=== PATIENT | female | born 1990 | race Caucasian/White ===

== ENCOUNTER 2019-09-08 19:05 | Emergency (ER) | payer OTHER, SELFPAY ==
[2019-09-08 19:25] VITALS: BP 140/77; PULSE 107; RESP 18; TEMP 37.5; O2SAT 100
--- NOTE | 2019-09-08 20:05 | ED.SKABFB ---
HPI - Skin/Abscess/Foreign Bdy General Chief complaint: Skin/Abscess/Foreign Body Stated complaint: Boil on inner thigh Time Seen by Provider: 09/08/19 20:10 Source: patient Mode of arrival: ambulatory Limitations: no limitations History of Present Illness HPI narrative: healthy 28 yo female presents for pain, redness, swelling noted to left inner thigh that has been present for 1 week and worsening. She denies any drainage, fever, myalgias, chills, sweats. NO medications used. No prior hx of abscesses. Related Data Home Medications Medication Instructions Recorded Confirmed [id number] K tablet PO 09/08/19 [Adults Multivitamin] Allergies Allergy/AdvReac Type Severity Reaction Status Date / Time No Known Allergies Allergy Unverified 12/21/17 15:40 Review of Systems Review of Systems: Narrative: CONSTITUTIONAL: Denies fever, chills, weight loss, or sweats. CARDIOVASCULAR: Denies chest pain, palpitations, or edema. RESPIRATORY: Denies cough or dyspnea. SKIN: Denies rash or itching. Reports pain, redness, swelling, firmness to left inner thigh MUSCULOSKELETAL: Denies back pain, joint pain, myalgia NEUROLOGIC: Denies headache, numbness, or weakness. PSYCHIATRIC: Denies anxiety or depression. PMFSH Comments At the time of my signature, I agree with nursing past medical, surgical, social and family history. There is no relevant family history pertinent to the presenting complaint. Exam Narrative: Exam Narrative: GENERAL: Mild distress due to pain, well appearing, well nourished, alert and calm HEAD: Normocephalic, atraumatic. THROAT: Oropharynx without signs erythema, exudates or lesions. Tonsils not enlarged. NECK: Supple. No lymphadenopathy. RESPIRATORY: Airway patent. Chest clear to auscultation bilaterally. Breath sounds equal bilaterally. No retractions. CARDIOVASCULAR: Regular rate and rhythm. No murmurs, rubs, gallops, or clicks. Capillary refill <2 seconds. MUSCULOSKELETAL: Range of motion grossly normal in all four extremities. Strength grossly normal in all four extremities. No edema. No swelling SKIN: Color normal. [id number] area of erythema and induration and mild central fluctuation. Very tender to touch. No drainage noted. Located to left inner thigh NEURO: Alert. Motor intact in all extremities. Muscle tone normal. Course Vital Signs Vital signs: Vital Signs Temperature 99.5 F 09/08/19 19:25 Pulse Rate 107 H 09/08/19 19:25 Respiratory Rate 18 09/08/19 19:25 Blood Pressure 140/77 09/08/19 19:25 Pulse Oximetry 100 09/08/19 19:25 Temperature 99.5 F 09/08/19 19:25 Pulse Rate 107 H 09/08/19 19:25 Respiratory Rate 18 09/08/19 19:25 Blood Pressure 140/77 09/08/19 19:25 Pulse Oximetry 100 09/08/19 19:25 Reviewed The patient has been informed that they may have pre-hypertension or Hypertension based on a BP reading in the department. I recommend that the patient call the primary care provider listed on their discharge instructions or a physician of their choice this week to arrange follow up for further evaluation of possible pre-hypertension or Hypertension MDM - Skin/Abscess/Foreign Bdy MDM Narrative Medical decision making narrative: Patient is stable but due to size of abscess and inability for appropriate pain control during I&D, recommended patient go to the ER for I&D. Patient declined and stated she will follow up with per PCP tomorrow. Will place patient on abx and instructed on how to care for abscess at home. Patient is aware of diagnosis, understands and agrees to treatment plan. Patient agrees to follow-up as directed and is aware of reasons to seek care at the emergency department. Critical Care Time Critical Care Time Critical Care Time: No Discharge Plan Discharge Clinical Impression: Abscess of skin Patient Disposition: Home, Self-Care Condition: Stable Instructions: Abscess (ED) Additional Instructions: Recommen
== END 2019-09-08 20:10 | disposition home or self-care (01) ==
PROVIDERS: Emergency Provider Nurse Practitioner
DX: L02.416 Cutaneous abscess of left lower limb (principal)
CPT/HCPCS: 99213; G0463

== ENCOUNTER 2022-11-25 13:02 | Emergency (ER) | payer BC, SELFPAY ==
[2022-11-25 13:16] VITALS: BP 128/84; PULSE 110; RESP 14; TEMP 37.6; O2SAT 100
--- NOTE | 2022-11-25 13:36 | ED.URI ---
HPI - URI/Sore Throat General Chief Complaint: Upper Respiratory Infection Stated Complaint: Sore Throat Source: patient and RN notes reviewed History of Present Illness HPI Narrative: 31-year-old female presents to urgent care with complaints of a sore throat since last Friday or Friday. Patient states in the last 24 hours, her pain has exacerbated. Patient denies any fevers, chills, vomiting, abdominal pain, chest pain, shortness of. Patient has taken ibuprofen and Tylenol with minimal relief. Some parts of this dictation were generated by voice recognition software and may contain typographical and/or grammatical inaccuracies. Related Data Home Medications Medication Instructions Recorded Confirmed multivit with minerals-iron 18 1 tablet PO DAILY 09/08/19 mg-folic ac 400 mcg-vit K 25 mcg tablet (Adults Multivitamin) Allergies Allergy/AdvReac Type Severity Reaction Status Date / Time No Known Allergies Allergy Verified 11/25/22 13:18 Review of Systems Review of Systems: Pertinent positives and pertinent negatives per HPI. PMFSH Comments At the time of my signature, I reviewed and agree with the nursing past medical, surgical, social, and family history. There is no relevant family history pertinent to the patient complaint. Exam Narrative: GENERAL: This is a well-nourished, well-developed patient, in no apparent distress. HEAD: normocephalic, atraumatic. EYES: Sclera clear/white. Vision is grossly intact. EARS: External ears normal, auditory canals clear and without drainage. Hearing grossly intact. NOSE: External nose normal with no obvious nasal discharge, nares without redness, no rhinorrhea. THROAT: Mucous membranes moist, posterior pharynx erythemic. Tonsils are 2+ bilaterally. No exudate. NECK: Neck supple, non-tender without lymphadenopathy, masses or thyromegaly. CARDIOVASCULAR: Regular rate and rhythm without murmurs, gallops, or rubs. RESPIRATORY: Clear to auscultation. Breath sounds equal bilaterally. No wheezes, rales, or rhonchi. GASTROINTESTINAL: Abdomen soft, non-tender, nondistended. Bowel sounds are active. No hepato-splenomegaly, or palpable masses. No guarding. SKIN: warm, intact with no suspicious lesions or rash, good texture and turgor. NEURO: awake, alert, and oriented to person, place and time. There were no obvious focal neurologic abnormalities. Course Course Level of Care: Express Care Visit Vital Signs Vital signs: Vital Signs Temperature 99.6 F 11/25/22 13:16 Pulse Rate 110 H 11/25/22 13:16 Respiratory Rate 14 11/25/22 13:16 Blood Pressure 128/84 11/25/22 13:16 Pulse Oximetry 100 11/25/22 13:16 Oxygen Delivery Room Air 11/25/22 13:16 Temperature 99.6 F 11/25/22 13:16 Pulse Rate 110 H 11/25/22 13:16 Respiratory Rate 14 11/25/22 13:16 Blood Pressure 128/84 11/25/22 13:16 Pulse Oximetry 100 11/25/22 13:16 Oxygen Delivery Room Air 11/25/22 13:16 Reviewed MDM - URI/Sore Throat MDM Narrative Medical decision making narrative: After 24 hours on antibiotics throw tooth brush away and start using a new one. Increase your Vitamin C. Do not share drinks. Take Motrin alternating with Tylenol for pain and/or fever alternating every 4 hours. Increase fluids, avoid caffeine. Take a probiotic daily or eat a low sugar yogurt while taking the antibiotic. Follow up with Primary provider if not getting better this week Lab Data Labs: Strep Screen Positive Group A Strep *(Reference Range: Negative)* Critical Care Time Critical Care Time Critical Care Time: No Discharge Plan Discharge Clinical Impression: Pharyngitis Qualifiers: Pharyngitis/tonsillitis etiology: streptococcus Qualified Code(s): J02.0 - Streptococcal pharyngitis Patient Disposition: Home, Self-Care Condition: Stable Instructions: Antibiotic Form, Strep Throat (DC) Additional Instruction
== END 2022-11-25 13:38 | disposition home or self-care (01) ==
PROVIDERS: Emergency Provider Nurse Practitioner Family
DX: J02.0 Streptococcal pharyngitis (principal)
CPT/HCPCS: 87880; 99213; G0463

== ENCOUNTER 2022-12-08 18:48 | Observation (INO) | payer BC, SELFPAY ==
--- NOTE | ~2022-12-08 | CT_ITS ---
EXAMINATION: CT abdomen pelvis w con DATE: 12/08/2022 21:16 INDICATION: Cholecystitis TECHNIQUE: Computed tomography (CT) of the abdomen and pelvis was performed with 100 mL Omnipaque-350 intravenous contrast. Automated exposure control and iterative reconstruction technique were employe d. The dose-length product was 512.06 mGy-cm. COMPARISON: 04/05/2012. FINDINGS: Lower thorax: Unremarkable Liver: Normal. Biliary/Gallbladder: Focal hyperdensity near the gallbladder neck. Gallbladder wall edema. No bile du ct dilation. Pancreas: No mass or duct dilation. Spleen: Normal. Adrenals:No mass. Kidneys: No suspicious mass, stone, or hydronephrosis. GI tract: Mild distal esophageal and gastric wall edema. No small or large bowel dilation. Chronicall y dilated appendix, with no surrounding inflammatory change. Mesentery/Peritoneum: No ascites, mass, or free air. Retroperitoneum: No mass. Pelvis: IUD, situated in the lower uterine segment. The remaining pelvic organs are within normal tejeda its. Soft Tissues: Soft tissues and body wall unremarkable. Bones: No acute osseous finding. IMPRESSION: Cholelithiasis, with gallbladder wall edema/thickening, which may represent acute cholecystitis in th e appropriate clinical context. Reviewed, dictated and finalized at location K. IMPRESSION: Cholelithiasis, with gallbladder wall edema/thickening, which may represent acu te cholecystitis in the appropriate clinical context.
[2022-12-08 18:54] VITALS: BP 181/82; PULSE 105; RESP 18; TEMP 37.1; O2SAT 100
[2022-12-08 20:14] LABS: Appearance Urine Clear (Clear); Bilirubin Urine Negative (Negative); Blood Urine Negative (Negative); Color Urine Yellow (Yellow); Glucose Urine UA Negative (Negative); Ketones Urine Negative (Negative); Leukocyte Esterase Ur Negative LEU/UL (Negative); Nitrate Urine Negative (Negative); Protein Urine Negative (Negative); Specific Grav Ur 1.002 (1.001-1.035); Urobilinogen Urine 0.2 mg/dL (<2.0)
[2022-12-08 20:15] LABS: Add Urine Microscopic? NO
[2022-12-08] MEDS: ONDANSETRON INJ 4 MG/2 ML VIAL 8 MG IV PUSH (20:17)
[2022-12-08] MEDS: SODIUM CHLORIDE 0.9% IV 2,000 ML 999 ML IV CONT (20:17)
[2022-12-08] MEDS: FAMOTIDINE 20 MG/2 ML VIAL IV PUSH (20:17)
[2022-12-08] MEDS: HYDROmorphone HCL INJ (*CRX) 1 MG/ML SYR 0.5 MG IV PUSH ×3 (20:18→22:29)
[2022-12-08 20:33] LABS: Basophils Absolute Auto 0.1 K/mm3 (0.0-0.1); Basophils Percent Auto 0.5 % (0.2-1.2); Eosinophils Absolute Auto 0.2 K/mm3 (0-0.3); Eosinophils Percent Auto 1.5 % (0-4.4); Hematocrit 48.8 % (37.0-47.0); Hemoglobin 15.8 g/dL (12.0-15.0); Immature Granulocyte Absolute 0.04 K/mm3 (0.00-0.031); Immature Granulocyte Percent A 0.4 % (0-0.5); Lymphocytes Absolute Auto 1.99 K/mm3 (0.9-3.2); Lymphocytes Percent Auto 17.7 % (18.3-44.2); Mean Corpuscular HGB Conc 32.4 g/dl (32-36); Mean Corpuscular Volume 92.6 fl (80-100); Mean Platelet Volume 9.2 fl (7.4-10.4); Monocytes Absolute Auto 0.4 K/mm3 (0.1-0.6); Monocytes Percent Auto 3.7 % (2.6-8.5); Neutrophils Absolute Auto 8.5 K/mm3 (1.3-6.7); Neutrophils Percent Auto 76.2 % (45.5-73.1); Platelet Count Result 392 k/mm3 (150-375); Red Blood Count 5.27 M/mm3 (4.2-5.4); Red Cell Distribution Width 13.6 % (11.5-14.5); White Blood Count 11.2 K/mm3 (4.5-10.0)
[2022-12-08 20:43] LABS: Alanine Aminotransferase 29 U/L (6-35); Albumin Level 4.9 g/dL (3.5-5.1); Alkaline Phosphatase 110 U/L (38-126); Anion Gap 8 mmol/L (8-16); Aspartate Amino Transferase 27 U/L (14-36); Bilirubin,Total 0.5 mg/dL (0.2-1.3); Blood Urea Nitrogen 7 mg/dL (7-17); Calcium 9.8 mg/dL (8.4-10.2); Carbon Dioxide 24 mmol/L (22-30); Chloride 105 mmol/L (98-107); Estimated CRCL calculation 131 ml/min; Estimated Glomerular Filt Rate > 60; Glucose 111 mg/dL (65-110); Lipase 54 U/L (23-300); Potassium 4.3 mmol/L (3.4-5.0); Sodium 137 mmol/L (137-145)
--- NOTE | 2022-12-08 20:59 | ED.GENADULT ---
HPI - General Adult General Chief complaint: Abdominal Pain Stated complaint: upper abd pain Time Seen by Provider: 12/08/22 19:38 History of Present Illness HPI narrative: This is a 31-year-old female presenting ED with chief complaint of right upper quadrant pain. Started last night at 11:00 p.m. and lasted till 8:00 a.m.. It then resolved but then recurred again this afternoon. Since then has been constant. It is located in the right upper quadrant, nonradiating 9 out 10 in intensity and comes and goes. She has never had pain like this before, it is worse after eating and there are no alleviating factors. She has had multiple episodes of nausea and vomiting with subjective fevers. No diarrhea no chest pain no shortness of breath. Related Data Home Medications Medication Instructions Recorded Confirmed multivit with minerals-iron 18 1 tablet PO DAILY 09/08/19 mg-folic ac 400 mcg-vit K 25 mcg tablet (Adults Multivitamin) Allergies Allergy/AdvReac Type Severity Reaction Status Date / Time No Known Allergies Allergy Verified 11/25/22 13:18 [facility] Surgical History Surgical History H/O: Exam Narrative: APPEARANCE: No apparent distress. Head: atraumatic. EYES: EOMI, NOSE: Atraumatic NECK: Trachea midline RESPIRATORY: No increased rate of breathing CARDIOVASCULAR: RRR, ABDOMINAL: Patient is exquisitely tender in the right upper quadrant. rest the abdomen is soft nontender with no guarding or rebound. MUSCULOSKELETAl: No obvious deformities NEURO: Alert. Moving 4/4 extremities SKIN:: Warm, dry. Normal color PSYCHIATRIC: Normal affect Point of care right upper quadrant ultrasound performed by myself showed multiple gallstones, a thickened gallbladder wall and pericholecystic fluid. Findings are concerning for cholecystitis. Course Vital Signs Vital signs: Vital Signs Temperature 98.8 F 12/08/22 18:54 Pulse Rate 105 H 12/08/22 18:54 Respiratory Rate 18 12/08/22 18:54 Blood Pressure 181/82 H 12/08/22 18:54 Pulse Oximetry 100 12/08/22 18:54 Oxygen Delivery Room Air 12/08/22 18:54 Temperature 98.8 F 12/08/22 18:54 Pulse Rate 69 12/08/22 21:46 Respiratory Rate 16 12/08/22 21:46 Blood Pressure 149/94 H 12/08/22 21:46 Pulse Oximetry 100 12/08/22 21:46 Oxygen Delivery Room Air 12/08/22 18:54 Procedures Other Procedure Procedure 1: Other Procedure: Point of care right upper quadrant ultrasound performed by . exam finding showed multiple cholelithiasis with gallbladder wall thickening and pericholecystic fluid. Positive sonographic Rivera's. Findings are concerning for acute cholecystitis. Medical Decision Making MDM Narrative Medical decision making narrative: -Presentation: 31-year-old female presenting with right upper quadrant/epigastric pain. -DDX includes but is not limited to: gastritis, gallbladder pathology -Co-morbidities complicating care: none -Social determinants of health: works as an production support analyst. Lives with her . -External Chart Review: None -Hx from independent Sources: Venessa-mother bedside -Discussion of Management/Consultants: Dr. Handy surgery -Independent interpretation of studies: right upper quadrant ultrasound and CT abdomen pelvis showed acute cholecystitis. Patient has mild white count of 11.2. No elevation in liver enzymes. Urinalysis was negative. Dx tests considered but not ordered: None -Procedures: right upper quadrant ultrasound -Interventions: 0.5 mg Dilaudid x3, 15 mg Toradol, 1000 mg tylenol, 4mg Zofran, pip/tazo, 2L NS -Shared decision making / Disposition: patient received multiple rounds of Dilaudid without improvement in her pain. Patient's findings are concerning for acute cholecystitis. Patient will be admitted to the hospital for pain control and evaluation by surgery. -RX Vital Signs Vital
[2022-12-08 21:46] VITALS: BP 149/94; PULSE 69; RESP 16; O2SAT 100
[2022-12-08] MEDS: KETOROLAC 15 MG/ML VIAL (*BKC) IV PUSH (22:37)
[2022-12-08] MEDS: PIPERACILLN/TAZ 3.375GM/NS50ML 3.375 GM/50 ML BAG IVPB (22:54)
[2022-12-08 22:56] VITALS: BP 121/81; PULSE 75; RESP 16; O2SAT 100
--- NOTE | 2022-12-08 23:22 | ADMGEN ---
This patient, Susan Vasquez, was admitted to Medical Room 259-. Patient/family oriented to hospital policies and general routines including ID bracelet, bed and alarms, visiting hours, pain management, procedures, bathroom and other care routines, personal items, smoking policy, room service/diet, and visiting hours. Information on how to activate the Rapid Response Team has been discussed. Patient/Family are encouraged to report perceived risks to care and to ask questions if they do not understand what they are told or what they should do.
[2022-12-08 23:28] VITALS: BP 129/76; PULSE 72; RESP 20; TEMP 36.2; O2SAT 100
[2022-12-08 23:29] VITALS: BMI 29.7
[2022-12-08] MEDS: LACTATED RINGERS 1,000 ML 125 ML IV CONT (23:39)
[2022-12-09] MEDS: PIPERACILLN/TAZ 3.375GM/NS50ML 3.375 GM/50 ML BAG IVPB ×4 (05:35→23:45)
[2022-12-09] MEDS: KETOROLAC 30 MG/ML VIAL (*BKC) 15 MG IV PUSH ×2 (05:38→15:43)
[2022-12-09] MEDS: LACTATED RINGERS 1,000 ML 125 ML IV CONT ×3 (05:43→23:52)
[2022-12-09 06:00] VITALS: BP 122/75; PULSE 60; RESP 20; TEMP 36.7; O2SAT 98
[2022-12-09] MEDS: PANTOPRAZOLE SODIUM IV 40 MG VIAL IV PUSH (08:21)
--- NOTE | 2022-12-09 09:50 | PM.IMHP ---
H&P: HPI History of Present Illness Date/Time: 12/09/22 09:50 Chief Complaint: Epigastric abdominal pain Narrative: This is a 31-year-old who presented to the ER with epigastric abdominal pain last night. She reports a sudden onset of pain around 11:00 p.m. 2 nights ago. She had eaten baked chicken and rice for dinner prior to the onset of symptoms. She tried taking Tylenol, Aleve, and Tums without any relief. She was unable to sleep all night due to the pain. Her pain began to improve around 8:00 a.m. yesterday morning. She reports still feeling some soreness in the epigastric area. She had a poor appetite yesterday and only ate a few chips. Her abdominal pain became aggravated in the afternoon and was more severe than it was the night before. Therefore, she presented to the ER for evaluation. Labs showed a white blood cell count of 11,[address] scan of the abdomen and pelvis showed cholelithiasis with gallbladder wall edema/thickening with a focal hyperdensity near the gallbladder neck, which may represent acute cholecystitis. She continued to have abdominal pain in the ER and was admitted to our service for acute cholecystitis. She was started on IV Zosyn and made NPO. She is now seen on the medical floor. She is still having some pain, which is relieved by the IV pain medication. She reports associated nausea with 3 episodes of vomiting yesterday, but no nausea this morning. Only previous abdominal surgery was a delivery about 5 years ago. She does endorse previous episodes of similar epigastric abdominal pain that are more mild and resolved spontaneously over the past few years. Review of Systems Review of Systems: All systems reviewed & are unremarkable except as noted in HPI and below Cardiovascular: Cardiovascular: Reports no additional cardiovascular complaints, Denies chest pain and Denies pedal edema Respiratory: Respiratory: Reports no additional respiratory complaints, Denies cough and Denies dyspnea Gastrointestinal: Gastrointestinal: Reports as per HPI, Reports no additional gastrointestinal complaints, Reports abdominal pain, Denies melena, Denies bloating, Denies hematochezia, Denies coffee ground emesis, Denies constipation, Reports nausea, Reports vomiting and Denies hematemesis PMFSH Past Medical History Medical History No pertinent past medical history Surgical History Surgical History H/O: Family History Family History Father Malignant neoplasm of prostate Mother Diabetes mellitus Social History Social History Smoking packs per day: 1 Smoking cigarettes per day: 20.0 Smoking status: Current every day smoker Tobacco type: cigarettes Alcohol intake: never Substance use: never Lack of Transportation: No Lack of Food: Never True Current Housing: I Have Housing Concerned About Future Housing: No Difficulty Paying Gas/Electric Bills: No Difficulty Paying for Meds: No Currently Unemployed: No Education: Associate Degree Difficulty w/ Childcare or Family Care: No Spiritual care concerns: No Meds Home Medications and Allergies Home Medications Medication Instructions Recorded Confirmed Type No Home Medications 12/08/22 12/08/22 History Allergies Allergy/AdvReac Type Severity Reaction Status Date / Time No Known Allergies Allergy Verified 11/25/22 13:18 Vital Signs Vital Signs - 24 hr 12/08/22 18:54 12/08/22 21:46 12/08/22 22:56 Temperature 98.8 F Pulse Rate 105 H 69 75 Respiratory Rate 18 16 16 Blood Pressure 181/82 H 149/94 H 121/81 Pulse Oximetry 100 100 100 Oxygen Delivery Room Air 12/08/22 23:28 12/09/22 06:00 Temperature 97.1 F L 98.1 F Pulse Rate 72 60 Respiratory
[2022-12-09] MEDS: CHLORHEXIDINE GLUCONATE 4% SOL 120 ML BTL 1 APPLIC TOPICAL (11:20)
[2022-12-09 14:19] VITALS: BP 126/74; PULSE 67; RESP 17; TEMP 36.9; O2SAT 100
--- NOTE | 2022-12-09 14:22 | WPDHPUPDATE1 ---
History and Physical Update Update Date/Time: 12/09/22 14:22 History and Physical has been reviewed, including an updated exam of the patient. There are NO changes in the patient's condition. Risks, benefits, and alternatives have been discussed and questions answered. Patient agrees to proceed with procedure.
[2022-12-09] MEDS: ACETAMINOPHEN 500 MG TABLET 1000 MG PO (15:43)
[2022-12-09] MEDS: LACTATED RINGERS 1,000 ML 30 ML IV CONT (15:48)
--- NOTE | 2022-12-09 15:49 | PCCCNOTE ---
On 12/09/22, the student, [Iris Ferrer ], provided care and completed [facility] documentation on this patient. I have reviewed the student's documentation and agree with the findings.
--- NOTE | 2022-12-09 16:27 | SUR.OPER ---
2389 dr farnsworth spoke with pt and rn about canceling case today and doing it tomorrow morning. pt is ok with this.
--- NOTE | 2022-12-09 18:32 | PC.NURSE ---
On 12/09/22, the student, Lanny Velasquez RN LP, provided care and completed [facility] documentation on this patient. I have reviewed the student's documentation and agree with the findings.
[2022-12-09 19:47] VITALS: PULSE 67; RESP 17; O2SAT 100
[2022-12-09 20:45] VITALS: BP 127/87; PULSE 67; RESP 18; TEMP 36.9; O2SAT 100
[2022-12-09 22:00] VITALS: BP 138/85; PULSE 61; RESP 18; TEMP 36.7; O2SAT 99
[2022-12-10] VITALS (14 sets, daily range): BP systolic 131–157; BP diastolic 68–92; PULSE 65–109; RESP 16–18; TEMP 36.3–37.1; O2SAT 92–100
[2022-12-10] MEDS: PIPERACILLN/TAZ 3.375GM/NS50ML 3.375 GM/50 ML BAG IVPB (05:41)
--- NOTE | 2022-12-10 06:58 | P.PNAN_ITS ---
Anes - Initial Pre Proc Eval Procedure: Operation Date: 12/09/22 16:30 Proposed Procedures p Laparoscopic Cholecystectomy - Angela Handy MD Operation Date: 12/10/22 07:30 Proposed Procedures p Laparoscopic Cholecystectomy - Angela Handy MD Date/Time: 12/10/22 06:58 Surgeon: Angela Handy MD Pre Op Diagnosis: cholecystitis Patient Data Age: 31 Gender: F Height: 1.6 m Weight: 76 kg Last Vital Signs Temp 37.1 C 12/10/22 06:24 Pulse 65 12/10/22 06:24 Resp 18 12/10/22 06:24 BP 131/71 12/10/22 06:24 Pulse Ox 100 12/10/22 06:24 O2 Del Method Room Air 12/10/22 06:24 Allergies Allergy/AdvReac Type Severity Reaction Status Date / Time No Known Allergies Allergy Verified 12/10/22 06:42 Home Medications Medication Instructions Recorded Confirmed Type No Home Medications 12/08/22 12/09/22 History Patient hx anesthesia problems: none Family hx anesthesia problems: none Results Review: All pre-operative results and documents have been reviewed as part of the pre- operative evaluation. [facility] Past Medical History Medical History No pertinent past medical history Surgical History Surgical History H/O: Family History Family History Father Malignant neoplasm of prostate Mother Diabetes mellitus Social History Social History Smoking packs per day: 1 Smoking cigarettes per day: 20.0 Smoking status: Current every day smoker Tobacco type: cigarettes Alcohol intake: never Substance use: never Lack of Transportation: No Lack of Food: Never True Current Housing: I Have Housing Concerned About Future Housing: No Difficulty Paying Gas/Electric Bills: No Difficulty Paying for Meds: No Currently Unemployed: No Education: Associate Degree Difficulty w/ Childcare or Family Care: No Spiritual care concerns: No Anes - Eval Final PreProcedure Day of Procedure 12/10/22 06:58 Patient weight: overweight Heart: regular rate and rhythm Lungs: clear to auscultation Airway: Mallampati scale class II Neurological: alert and oriented Last oral intake: >/= 8 hours ASA classification: III Emergent: no Anesthetic plan: proceed Anesthesia type and monitoring: general ETT and standard monitoring Results Review: All pre-operative results and documents have been reviewed as part of the pre- operative evaluation. Informed Consent: The patient's anesthetic plan and its attendant risks and benefits were discussed with the patient/family/POA. Questions were solicited and answers provided to the satisfaction of the patient/family/POA.
--- NOTE | 2022-12-10 07:11 | WPDHPUPDATE1 ---
History and Physical Update Update Date/Time: 12/10/22 07:11 History and Physical has been reviewed, including an updated exam of the patient. There are NO changes in the patient's condition. Risks, benefits, and alternatives have been discussed and questions answered. Patient agrees to proceed with procedure.
[2022-12-10] MEDS: SCOPOLAMINE 1.5 MG PATCH TRANSDERM (07:19)
[2022-12-10] MEDS: BUPIVACAINE/EPINEPHRINE 0.5% 50 ML VIAL 30 ML INFILTRATE (08:00)
--- NOTE | 2022-12-10 08:37 | W.PM.PROC2 ---
Procedure Note - Detailed Date of Procedure 12/10/22 Pre-op Diagnosis acute cholecystitis, cholelithiasis Post-op Diagnosis Same Procedure Performed Laparoscopic cholecystectomy Surgeon Angela Handy MD Anesthesia General Indications 31-year-old female presented to the hospital complaining of postprandial right upper quadrant abdominal pain associated with nausea and vomiting. Workup including imaging significant for acute cholecystitis, cholelithiasis. Findings acute cholecystitis with cholelithiasis Description of Procedure The patient was taken to the operating room placed in the supine position. After adequate induction of general anesthesia, the patient was prepped and draped in normal sterile fashion. A time-out was then performed to verify the patient's identity as well as the procedure being performed. I then made a 5 mm incision in the infraumbilical region. Through this, a Veress needle was placed into the peritoneal cavity and CO2 gas was then insufflated. After adequate pneumoperitoneum was achieved, the Veress needle was removed and a 5 mm optiview trocar was placed through this incision under direct visualization. I then placed the laparoscope through this trocar site and under direct visualization placed a further 12 mm subxiphoid port as well as 2 additional 5 mm ports in the right upper abdomen. The gallbladder was then identified and was noted to be inflamed, distended, and full of gallstones. I was able to place a grasper at the dome of the gallbladder and this was retracted anterior and cephalad up over the liver. A 2nd retractor was then placed at the infundibulum and retracted laterally, this allowed visualization of the triangle of Calot. I then was able to visualize the cystic duct in its entirety from its proximal insertion into the gallbladder, to its distal junction with the common hepatic/common bile duct junction. At this point, I carefully skeletonized the proximal cystic duct with the [place] dissector. I then clipped and transected the proximal cystic duct. Next I visualized the cystic artery. Again the artery was skeletonized, clipped, and transected. I then used the Bovie cautery to take down the peritoneal attachments of the gallbladder off the liver bed. This was somewhat difficult given the amount of inflammation in the posterior space. Once the gallbladder specimen was completely detached, an endo-pouch was placed through the 12 mm port site. I then placed the gallbladder specimen into the Endo pouch and removed the endo-pouch from the 12 mm port site. The specimen will now be sent to pathology for further review. I then copiously irrigated the right upper quadrant. Some mild oozing was noted in the liver bed and this was controlled with the bovie cautery. Hemostasis was noted in the liver bed, the clips were noted to be in good position on both the cystic duct stump and the cystic artery stump. No other pathology was noted in the right upper quadrant. I then moved the laparoscope to the subxiphoid port. No iatrogenic injury or other pathology was noted in the lower abdomen. I then closed the 12 mm trocar site under direct visualization using the Cheo cone and 0 Vicryl suture. At this point, the abdomen was desufflated and all ports removed. All port sites were then closed with 4.O Monocryl subcuticular sutures. Dermabond was placed on each incision. The patient tolerated the procedure well, was extubated in the operating room postoperative and will be transferred to the recovery room in stable condition Estimated Blood Loss 10 Urine Output 600 Drains No Packing No Pathology Yes Complications No immediate complications Condition Stable Disposition PACU [facility] Billing Surgery - Charge Forward: Surgery Billing
[2022-12-10] MEDS: LACTATED RINGERS 1,000 ML 30 ML IV CONT (08:47)
[2022-12-10] MEDS: fentaNYL CITRATE INJ (*CRX) 100 MCG/2 ML VIAL 25 MCG IV PUSH ×8 (09:00→09:49)
[2022-12-10] MEDS: ONDANSETRON INJ 4 MG/2 ML VIAL IV PUSH (09:50)
[2022-12-10] MEDS: HYDROcodone/acetaminophen (*CRX) 7.5-325 MG TABLET 1 TAB PO ×2 (10:31→15:12)
[2022-12-10] MEDS: PANTOPRAZOLE SODIUM IV 40 MG VIAL IV PUSH (10:32)
--- NOTE | 2022-12-11 10:13 | PM.DS ---
DS: Admitting Diagnosis Discharge Date 12/10/22 Admitting Diagnosis Acute cholecystitis, cholelithiasis DS: Discharge Diagnosis Discharge Diagnosis (1) Acute cholecystitis: Code(s): K81.0 - Acute cholecystitis Status: Acute Assessment and Plan: status post laparoscopic cholecystectomy, doing well, continue routine postoperative care, home with p.o. analgesia, follow-up 2 weeks (2) Tobacco abuse: Code(s): Z72.0 - Tobacco use Status: Acute Assessment and Plan: discussed cessation DS: Summary Hospital Course Reason for hospitalization: acute cholecystitis Hospital Course: The patient is a 31 year female presenting to the hospital complaining of severe upper abdominal pain, nausea and vomiting. Workup, including imaging, was significant acute cholecystitis, cholelithiasis. Given these findings, the patient was admitted to the surgical service and started on IV antibiotics. Upon evaluation and discussion with the patient, the decision was made for urgent cholecystectomy during this hospitalization. The patient was taken to the operating room on 12/10 and laparoscopic cholecystectomy performed. Please see full operative report for details of procedure. Postoperatively, the patient did well was transferred back to the floor. The patient was able to tolerate a diet and was ambulating without difficulty. Pain was well controlled postop with p.o. analgesia. At this time she will be discharged home with p.o. analgesia and follow-up in 2 weeks. Status at Discharge Functional status at discharge: independent ambulation Overall status at discharge: patient is progressing back to baseline Time Spent with Patient Time attestation: Total time spent providing and/or coordinating discharge services: Time spent: Less than 30 minutes Exam Const: General: cooperative, comfortable and no acute distress GI: Inspection: normal to inspection, distended and incision GI Palp: Yes abdominal tenderness, Yes Soft to palpation, Yes Tenderness to palpation present (GI), No Guarding due to palpation present (GI) and No Rigid due to palpation DS: Data Data Completed and Pending Pending studies at discharge: Pending at discharge 12/10/22 08:08 Surgical [PTH] Routine Discharge Plan Discharge Attending physician on discharge: Angela Handy Consulting providers: Denisa Alvarado; José Antonio Nelson; Shane Lynch Discharging Clinician: Angela Handy Anticipated Discharge Date/Time: 12/10/22 13:00 Patient Disposition: Home, Self-Care Activity: may shower and as tolerated Diet: as tolerated Wound Care Instructions: incision open to air Discharge Instructions: DISCHARGE INSTRUCTION SHEET FOR HERNIA, GALLBLADDER AND APPENDIX SURGERIES DR. HANDY PATIENT TO TAKE HOME 1. May shower in 24 hours, no soaking in bath x 2weeks. 2. Call office for: Wound increasingly painful or bleeding Vomiting Fever of greater than 101 degrees 3. If no bowel movement for three days, take 1 oz. (30 ml) Milk of Magnesia or MiraLax 17g 1 to 2 times daily. 4. No heavy lifting > 10-15 pounds x 6 weeks for hernia repairs and 2 weeks for laparoscopic cholecystectomy or appendectomy. 5. No driving for 3 days or while taking narcotic pain medications. 6. Ice to surgical site for 48 hours (30 min on, then 30 min off). 7. Up walking 10-30 minutes three times per day. 8. Resume previous home medications. 9. Follow-up 10-14 days in office for wound check or as previously scheduled. ([phone]) 10. Oral pain medications prescription to be sent to pharmacy. Take Tylenol 500mg every 6 hours and Ibuprofen 600mg every 6 hours for the first 2 days, then as needed. 11. NUTRITION: Start out by drinking fluids and increase your diet as tolerated. If you experience nausea, try dry toast, crackers, and 7-UP. If nausea or vomiting persists
== END 2022-12-10 15:40 | disposition home or self-care (01) ==
LOC: ANHED 22:41 → ANH2MED 23:05
PROVIDERS: Emergency Medicine; Admitting Provider Surgery; Emergency Provider Emergency Medicine; Visit Provider Surgery
PROC: 0FT44ZZ Resection of Gallbladder, Percutaneous Endoscopic Approach (ICD-10-PCS; CPT 47562; principal; 2022-12-09 16:30)
DX: K80.00 Calculus of gallbladder with acute cholecystitis without obstruction (principal); R63.0 Anorexia; D72.829 Elevated white blood cell count, unspecified; F17.210 Nicotine dependence, cigarettes, uncomplicated; E66.3 Overweight; Z68.29 Body mass index [BMI] 29.0-29.9, adult; Z79.899 Other long term (current) drug therapy
CPT/HCPCS: 47562; 36415; 74177; 80053; 81003; 81025; 83690; 85025; 88304; 96361; 96365; 96366; 96375; 96376; 99285; A9270; C9113; G0378; J0131; J1100; J1170; J1885; J2250; J2405; J2543; J2704; J2710; J3010; J7030; J7120; Q9967

== ENCOUNTER 2023-02-10 00:42 | Day surgery (SDC) | payer BC, SELFPAY ==
[2023-02-05 12:56] VITALS: BMI 28.0
--- NOTE | 2023-02-05 13:01 | PC.NURSE ---
Report to the Outpatient Waiting Room, entrance under the green pavilion located off [facility], at time _1045_ on date 02/10/23. Planned Procedure Time: 1245_. Time changes happen often and if your time is changed the preop area will call you the afternoon before. - You and your visitor will be asked to self-screen and do not enter if you have any COVID symptoms. - A mask is optional within the hospital at this time. Patients may have clear liquids (water, carbonated beverages, clear teas, apple juice) until 3 hours prior to surgery with a maximum of 20 ounces. - No food from midnight until time of surgery - Infants may have breast milk until 4 hours before surgery, formula 6 hours prior to surgery. - Children will be allowed to drink immediately following surgery. If applicable, please bring a bottle or sippy cup to assist with drinking. Juice, water, soda, and popsicles are readily available. For infants on formula, please bring formula the day of surgery. Pacifiers are allowed. Take the following medications with a SIP of water the morning of surgery: TYLENOL IF NEEDED DO NOT STOP ANY OF YOUR OTHER PRESCRIPTION MEDICATIONS PRIOR TO SURGERY ?EXCEPT THE FOLLOWING Medications to discontinue per physician NONE Date to take last dose Please no make-up, nail yi, hairspray, perfume, deodorant, or body powder the day of surgery. No jewelry (including any body piercings) or valuables the day of surgery, leave them at home. Please take a shower or bath the night before, or the morning of, surgery with an antibacterial soap. Wear comfortable, loose fitting clothing. Children are encouraged to wear pajamas. - Jewelry must be removed prior to entering the operating room. Rings and piercings that are not removed may be cut off. - The hospital will not accept responsibility for valuables. - Please leave all valuables, including medications, at home the day of surgery. If you are going home after surgery, a licensed [place] driver must drive you home. - NO public transportation without another adult if you receive anesthesia. - We recommend that an adult stay with you for 24 hours following discharge. - We also recommend that you do not drive, make important decision, drink alcoholic beverages, or take any drugs that were not prescribed by your health care provider for at least 24 hours after your discharge time. For Pediatric surgeries, we recommend two adults accompany the child home. Follow any additional instructions given to you from your surgeon. If you or anyone in your household have experienced Covid symptoms in the past week, please notify your surgeon or the nurse liaison at the phone number below for possible testing. Telephone instructions given to _PATIENT_and asked if any additional questions and then verbalized understanding. Patient advised to call surgeon office or pre surgery nurse liaison [phone] if any additional questions.
[2023-02-10] VITALS (9 sets, daily range): BP systolic 94–127; BP diastolic 57–105; PULSE 67–104; RESP 14–24; TEMP 36.5–37.2; O2SAT 95–100
--- NOTE | 2023-02-10 09:09 | WPDHPUPDATE1 ---
History and Physical Update Update Date/Time: 02/10/23 09:09 History and Physical has been reviewed, including an updated exam of the patient. There are NO changes in the patient's condition. Risks, benefits, and alternatives have been discussed and questions answered. Patient agrees to proceed with procedure.
--- NOTE | 2023-02-10 09:09 | PM.HPGS ---
History of Present Illness History of Present Illness Consent: Risks, benefits, and alternatives have been discussed and questions answered. Patient agrees to proceed with procedure. Chief complaint: desires sterilization Narrative: Susan Vasquez is a 32 year old female who has decided to proceed with permanent sterilization. Risks of infection, bleeding, perforation or injury to internal organs, tubal failure with increased ectopic, and general anesthesia are reviewed. Patient also desires to have her IUD removed at the same time. Patient was aware this a permanent sterilizing procedure and that the current recommendations are for removal of both tubes. Plan is for laparoscopic bilateral salpingectomy and IUD removal. Review of Systems Review of Systems: not repeated day of surgery; patient states no changes in status PMFSH Past Medical History Medical History (Updated 02/10/23 @ 09:12 by Radha Terry MD) Migraine (normal spontaneous vaginal delivery) Surgical History Surgical History (Updated 02/10/23 @ 09:11 by Radha Terry MD) H/O: History of extraction of renal calculus History of foot surgery part of her hip bone was used to reconstruct her foot S/P laparoscopic cholecystectomy 12/10/22 Family History Family History Father Malignant neoplasm of prostate Mother Diabetes mellitus Social History Social History Smoking packs per day: 1 Smoking cigarettes per day: 20.0 Years smoked: 15 Smoking pack-years: 15.00 Smoking status: Current every day smoker Tobacco type: cigarettes Alcohol intake: never Substance use: never Lack of Transportation: No Lack of Food: Never True Current Housing: I Have Housing Concerned About Future Housing: No Difficulty Paying Gas/Electric Bills: No Difficulty Paying for Meds: No Currently Unemployed: No Education: Associate Degree Difficulty w/ Childcare or Family Care: No Living arrangements: with family Spiritual care concerns: No Meds Home Medications and Allergies Home Medications Medication Instructions Recorded Confirmed Type acetaminophen 500 mg tablet 1,000 mg PO Q6H PRN Pain 02/05/23 02/05/23 History Allergies Allergy/AdvReac Type Severity Reaction Status Date / Time No Known Allergies Allergy Verified 02/05/23 12:54 Exam Const: General: healthy appearing and alert Orientation/consciousness: patient oriented x3 Resp: Effort & Inspection: normal respiratory effort GI: GI Palp: Yes Soft to palpation, No Tenderness to palpation present (GI) and No Palpable mass present : External Female Exam: normal external appearance Speculum Exam - Vagina: normal appearance of the vagina and normal vaginal discharge Speculum Exam - Cervix: normal appearance of the cervix Bimanual exam- vagina & uterus: uterine size normal and consistency normal Bimanual Exam- Adnexa, other: normal adnexae and No adnexal tenderness Neuro: General: patient oriented x3 Assessment and Plan Assessment and plan (1) Encounter for sterilization: Code(s): Z30.2 - Encounter for sterilization Status: Acute Assessment and Plan: plan to proceed with laparoscopic bilateral salpingectomy and removal of IUD
--- NOTE | 2023-02-10 11:08 | WPDANESEPPF ---
Anes - Initial Pre Proc Eval Procedure: Operation Date: 02/10/23 12:45 Proposed Procedures p Bilateral Laparoscopic Salpingectomy - Radha Terry MD Date/Time: 02/10/23 11:08 Surgeon: Radha Terry MD Pre Op Diagnosis: desires sterilization Patient Data Age: 32 Gender: F Height: 1.6 m Weight: 72 kg Allergies Allergy/AdvReac Type Severity Reaction Status Date / Time No Known Allergies Allergy Verified 02/10/23 10:48 Home Medications Medication Instructions Recorded Confirmed Type acetaminophen 500 mg tablet 1,000 mg PO Q6H PRN Pain 02/05/23 02/10/23 History Patient hx anesthesia problems: none Family hx anesthesia problems: none Results Review: All pre-operative results and documents have been reviewed as part of the pre-operative evaluation. [facility] Past Medical History Medical History Migraine (normal spontaneous vaginal delivery) Surgical History Surgical History H/O: History of extraction of renal calculus History of foot surgery part of her hip bone was used to reconstruct her foot S/P laparoscopic cholecystectomy 12/10/22 Family History Family History Father Malignant neoplasm of prostate Mother Diabetes mellitus Social History Social History Smoking packs per day: 1 Smoking cigarettes per day: 20.0 Years smoked: 15 Smoking pack-years: 15.00 Smoking status: Current every day smoker Tobacco type: cigarettes Alcohol intake: never Substance use: never Lack of Transportation: No Lack of Food: Never True Current Housing: I Have Housing Concerned About Future Housing: No Difficulty Paying Gas/Electric Bills: No Difficulty Paying for Meds: No Currently Unemployed: No Education: Associate Degree Difficulty w/ Childcare or Family Care: No Living arrangements: with family Spiritual care concerns: No Anes - Eval Final PreProcedure Day of Procedure 02/10/23 11:08 Patient weight: overweight Heart: regular rate and rhythm Lungs: decreased breath sounds Airway: Mallampati scale class II Neurological: alert and oriented Last oral intake: >/= 8 hours ASA classification: III Emergent: no Anesthetic plan: proceed Anesthesia type and monitoring: general ETT and standard monitoring Results Review: All pre-operative results and documents have been reviewed as part of the pre-operative evaluation. Informed Consent: The patient's anesthetic plan and its attendant risks and benefits were discussed with the patient/family/POA. Questions were solicited and answers provided to the satisfaction of the patient/family/POA.
[2023-02-10] MEDS: ACETAMINOPHEN 500 MG TABLET 1000 MG PO (11:13)
[2023-02-10] MEDS: LACTATED RINGERS 1,000 ML 30 ML IV CONT ×2 (11:16→12:27)
[2023-02-10] MEDS: KETOROLAC 15 MG/ML VIAL (*BKC) IV PUSH (11:16)
[2023-02-10] MEDS: SCOPOLAMINE 1.5 MG PATCH TRANSDERM (11:17)
--- NOTE | 2023-02-10 12:11 | SUR.OPER ---
IUD removed per Dr. Terry. Device intact.
--- NOTE | 2023-02-10 12:23 | W.PM.PROC2 ---
Procedure Note - Detailed Date of Procedure 02/10/23 Pre-op Diagnosis desires sterilization Post-op Diagnosis Same Procedure Performed Laparoscopic bilateral salpingectomy IUD removal Surgeon Radha Terry MD Anesthesia General Findings IUD strings are visible at the cervix; bilateral tubes are edematous with adhesions; omental adhesions to the pelvic sidewall and the anterior abdominal wall; from the flimsy adhesions from the bladder flap to the uterus and from the sidewalls to bilateral ovaries Description of Procedure The patient was taken to the operating room and placed under anesthesia in the dorsal lithotomy position. She was prepped and draped in the usual sterile fashion. [place] speculum was placed in the vagina and the IUD is grasped with a ring forcep and removed intact and discarded. The anterior lip was grasped with a tenaculum an acorn manipulator was placed. The speculum was removed. Bladder was drained with red rubber catheter. Attention was turned to the abdomen where a vertical skin incision was made at the base of the umbilicus. The Veress needle was placed with normal water drop test and opening patient pressure of 6mmHg. Pneumoperitoneum was obtained to a patient pressure of 15mmHg. The Veress needle was removed and the 5mm Optiview was placed. Intra-abdominal placement was confirmed with the laparoscope. The patient is placed in Trendelenburg and 2 additional ports are placed in the suprapubic region 1 to the left and 1 to the right of midline under direct visualization. The right tube is grasped at the fimbriated end and using the LigaSure device the mesosalpinx is cauterized and cut. Once the cornua was reached the tube was cross clamped cauterized and cut. The identical procedure was performed on the left tube. All instruments are removed. Pneumoperitoneum was reduced. Skin incisions were closed using 4-0 nylon in interrupted fashion. Sterile bandages were applied. Vaginal instruments are removed. Sponge, needle, and instrument counts are correct per the OR staff. The patient was awakened from anesthesia and taken to recovery in stable condition. Estimated Blood Loss 5 Drains No Packing No Pathology Yes ( Bilateral tubes) Complications No immediate complications Condition Stable Disposition PACU
[2023-02-10] MEDS: fentaNYL CITRATE INJ (*CRX) 100 MCG/2 ML VIAL 25 MCG IV PUSH ×2 (12:36→12:50)
== END 2023-02-10 14:30 | disposition home or self-care (01) ==
PROVIDERS: Visit Provider Obstetrics & Gynecology Gynecology
PROC: (CPT 49320; principal; 2023-02-10 12:45)
DX: Z30.2 Encounter for sterilization (principal); N73.6 Female pelvic peritoneal adhesions (postinfective); Z30.432 Encounter for removal of intrauterine contraceptive device; N83.8 Other noninflammatory disorders of ovary, fallopian tube and broad ligament; F17.210 Nicotine dependence, cigarettes, uncomplicated
CPT/HCPCS: 58661; 58301; 88302; A9270; J1100; J1170; J1885; J2250; J2405; J2704; J2710; J3010; J7030; J7120; Q9968